=== PATIENT | male | born 1940 | race Caucasian/White ===

== ENCOUNTER → 2018-04-13 09:13 | Oncology outpatient (ONC) | payer MEDICARE, SELFPAY ==
[2018-04-13 09:45] VITALS: BP 110/72; PULSE 94; RESP 16; TEMP 36.4; O2SAT 94
--- NOTE | 2018-04-13 10:15 | P.PNONC_ITS ---
Assessment and Plan (1) Thrombocytopenia Onset Date: 02/11/17 Problem details: 77-year-old man with a history of multiple cancers. He has no evidence of active disease. He has a mild thrombocytopenia from which she is asymptomatic. He has been clinically stable. None of his medications appear to be the likely etiology. It is possible that this may represent myelodysplasia. If that were the case, no specific treatment would be indicated given his normal white cell count and red count. I would recommend that he have a CBC checked every 6-12 months. If he develops worsening thrombocytopenia with a count in the [id number] range or lasts , or if he develops leukopenia or significant anemia then a marrow could be reconsidered. I have not scheduled a follow-up appointment for him here but would be happy to see him again in the future should his counts worsen or should new questions arise. Current visit: No Status: None PN -Subjective Interval history: The patient is a 77-year-old man who returns today for follow-up. 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 He also has a history of thyroid cancer, melanoma and prostate cancer. All of these have been in remission. He is been noted to have a slight decrease in his platelet count over the last year. It was as low as 90 about a year ago. Most recently it was 114. He has not noted any unusual bleeding or bruising. He denies any epistaxis or gingival bleeding. No blood in the urine or stool. His other counts have been stable. He is not at all symptomatic related to this. His biggest complaint has been increasing frailty. He has had some unsteadiness in his gait and had a fall a few weeks ago. He injured his right ribs and back. These have been slowly improving. He also has a history of congestive heart failure which has been clinically stable. He does note some dyspnea on exertion and does have some lower extremity edema. His weight has been unchanged. Appetite has been stable. His energy level has been generally low. He denies any fevers chills or night sweats. He has not noted any adenopathy. He does note that he has had some feelings of depression related to his worsening overall health. He does not feel that the depressive symptoms are bad enough to warrant any treatment but is willing to follow up with his primary physician regarding this. He does have a distant history of mantle cell lymphoma. 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 He has been in remission ever since. He had thyroid cancer that was diagnosed shortly after his transplant. He was treated with thyroidectomy follow be radioactive iodine. He did have a history of a melanoma resected from his back. He had 2 lymph nodes sampled which were negative for metastatic disease. He did not require any systemic therapy for this. He also was diagnosed with early stage prostate cancer. He also has a history of congestive heart failure and COPD. Social history: He is lives on [place]. He is a retired elementary school teacher's aide. He has a distant history of tobacco use but quit more than 40 years ago. He does not drink alcohol. - Additional ROS Additional ROS: He does note some right-sided rib and back pain since his fall. He has had some trouble with his memory and unsteady gait. Results - Labs On April 04 his white count was 15.4 hemoglobin 12.2 hematocrit 39 and platelets were 114,000. His creatinine was 1.6. - Imaging Additional studies: Procedures Insertion of intraocular lens prosthesis at time of cataract extraction, one- stage (12/15/11) Phacoemulsification and aspiration of cataract (12/15/11) Home Medications and Allergies Home Medications Medication Instructions Recorded Confirmed Type metoprolol succinate 25 mg PO QDAY #0 08/26/16 04/13/18 History alendronate [Fosamax] 70 mg PO Q7D@0730 #12 tab 12/28/16 04/13/18 Rx [calcium/Mg] 1 tab PO DAILY #0 01/22/17 04/13/18 History [tumeric] 1 tab PO DAILY #0 01/22/17 04/13/18 History cholecalciferol (vitamin D3) 1,000 unit PO QDAY #0 01/22/17 04/13/18 History [Vitamin D3] levothyroxine 100 mcg PO QAM #90 tab 03/22/17 04/13/18 Rx albuterol sulfate 1 puff INHALATION Q4-6H PRN 04/13/18 04/13/18 History lisinopril 5 mg PO BID 04/13/18 04/13/18 History multivitamin 1 tab PO DAILY 04/13/18 04/13/18 History rivaroxaban [Xarelto] 10 mg PO DAILY 04/13/18 04/13/18 History spironolactone 12.5 mg PO DAILY 04/13/18 04/13/18 History Allergies Allergy/AdvReac Type Severity Reaction Status Date / Time cadexomer iodine Allergy Severe ANAPHYLAXIS; Verified 04/13/18 09:48 [From IODOFLEX] N & V shellfish derived Allergy Severe ANAPHYLAXIS Verified 04/13/18 09:48 [SHELLFISH DERIVED] warfarin [From COUMADIN] Allergy Intermediate DIZZINESS Verified 04/13/18 09:48 BREATHING DIFFICULTY W/O SWELLING aspirin [ASPIRIN] Allergy Mild HEMORRHAGE Verified 04/13/18 09:48 Iodinated Contrast- Oral and Allergy Mild Verified 04/13/18 09:48 IV Dye [IODINATED CONTRAST MEDIA - IV DYE] Exam Vital signs: Last Vital Signs Temp 97.6 F 04/13/18 09:45 Pulse 94 H 04/13/18 09:45 Resp 16 04/13/18 09:45 BP 110/72 04/13/18 09:45 Pulse Ox 94 04/13/18 09:45 - Constitutional positive no acute distress, positive average body habitus - Routine HEENT Exam Head: Present: normocephalic, atraumatic Eye: Present: EOMI, PERRL. Absent: conjunctival icterus, scleral injection ENT: Present: mucous membranes moist, oropharynx clear - Routine Neck Exam Present: supple. Absent: lymphadenopathy, thyromegaly - Routine Chest/Breast/Axilla Exam Axillae: Absent: lymphadenopathy - Routine Respiratory Exam Present: Clear to auscultation bilaterally, decreased breath sounds. Absent: rales, wheezes - Routine Cardiovascular Exam Present: RRR, S1, S2. Absent: murmur - Routine Abdominal Exam Present: soft, normoactive bowel sounds. Absent: organomegaly, mass - Routine Extremities Exam Present: edema Comments: He has 1+ bilateral lower extremity edema. He does have some deformity of the fingers on his left hand. - Routine Back/Spine Exam Back/Spine: Absent: paraspinal tenderness, vertebral tenderness - Routine Skin Exam Absent: petechiae, rash Comments: He does have some small areas of ecchymoses on the arms.
--- NOTE | 2018-04-14 16:29 | ONC.SCHED ---
PATIENT TO FOLLOW UP WITH PRIMARY RADHA GILL
== END ==
LOC: ONC 09:21
PROVIDERS: Family Provider Family Medicine; PCP Family Medicine
DX: D69.6 Thrombocytopenia, unspecified (principal); Z85.72 Personal history of non-Hodgkin lymphomas; Z85.850 Personal history of malignant neoplasm of thyroid; Z85.820 Personal history of malignant melanoma of skin; Z85.46 Personal history of malignant neoplasm of prostate; Z87.891 Personal history of nicotine dependence
CPT/HCPCS: 99215